=== PATIENT | female | born 1985 | race African-American/Black ===

== ENCOUNTER 2022-03-04 09:24 | Emergency (ER) | payer MEDICAID, OTHER ==
[~2022-03-04] VITALS: Ht 162.6 cm; Wt 85.0 kg
[~2022-03-04 09:24] MED LIST: ALBU90AE INH
[2022-03-04] MEDS ORDERED: ALBUTEROL (0.083%) 2.5MG/3ML NEB HHN NR (09:37)
[2022-03-04] MEDS ORDERED: PREDNISONE 20MG TABLET PO NR (09:37)
[2022-03-04] MEDS ORDERED: IPRATROPIUM BROMIDE (0.02%) 0.5MG/2.5ML NEB HHN NR (09:37)
[2022-03-04] MEDS ORDERED: P50 MT (12:24)
[2022-03-04] MEDS ORDERED: ALBU6.7H3 INH (12:24)
[2022-03-04] MEDS ORDERED: ACETAMINOPHEN 325MG TABLET PO ONE (12:30)
[2022-03-04 12:35] VITALS: BP 120/75
== END 2022-03-04 12:37 | disposition home or self-care (01) ==
LOC: ER 09:24
DX: R06.02 Shortness of breath (principal); R07.89 Other chest pain; J45.909 Unspecified asthma, uncomplicated; F12.10 Cannabis abuse, uncomplicated
CPT/HCPCS: 93005; 94640; 99283; J7512; Z7610